=== PATIENT | female | born 1970 | race Two or more races ===

== ENCOUNTER 2017-10-18 09:21 | Day surgery (SDC) | payer BC ==
[2017-10-17 08:40] VITALS: BP 115/81
[~2017-10-18] VITALS: Ht 165.1 cm; Wt 90.6 kg
[~2017-10-18 09:21] MED LIST: ASCO500T8 PO; LEVO100T PO
[2017-10-18] MEDS ORDERED: LACTATED RINGERS 1,000 ML IV SCH (09:44)
[2017-10-18 09:46] VITALS: BP 115/81
[2017-10-18 09:52] LABS: HCG UR SG 1.029 (1.003-1.030)
[2017-10-18] MEDS ORDERED: PLEASE ENTER ALLERGIES MC SCH (10:00)
[2017-10-18] MEDS ORDERED: LIDOCAINE 1%, 2ML SQ PRN (10:00)
[2017-10-18] MEDS ORDERED: LIDOCAINE-MPF 2% ,5ML ONE (10:32)
[2017-10-18] MEDS ORDERED: PROPOFOL 10 MG/ML, 20ML ONE (10:32)
[2017-10-18] MEDS ORDERED: ROCURONIUM 10 MG/ML,10ML ONE (10:33)
[2017-10-18] MEDS ORDERED: MIDAZOLAM 1 MG/ML, 2ML ONE (10:34)
[2017-10-18] MEDS ORDERED: ONDANSETRON 2MG/ML, 2ML ONE ×2 (11:41→13:18)
[2017-10-18] MEDS ORDERED: DEXAMETHASONE 4 MG/ML, 1ML ONE ×2 (11:41)
[2017-10-18] MEDS ORDERED: INDOMETHACIN 50 MG SUPP.RECT ONE (12:09)
[2017-10-18] MEDS ORDERED: FENTANYL PF 100 MCG/2ML ONE (12:21)
[2017-10-18] MEDS ORDERED: OMNIPAQUE 350 MG/ML, 50 ML BOTTLE ONE (12:37)
[2017-10-18] MEDS ORDERED: MEPERIDINE/PF 25MG/0.5ML IVPush PRN (13:00)
[2017-10-18] MEDS ORDERED: ONDANSETRON 2MG/ML, 2ML IVPush PRN (13:00)
[2017-10-18] MEDS ORDERED: FENTANYL PF 100 MCG/2ML IV PRN (13:00)
== END 2017-10-18 15:10 ==
LOC: OUT 09:21
PROVIDERS: ATTEND Internal Medicine Geriatric Medicine
DX: K86.89 Other specified diseases of pancreas (principal); Z88.8 Allergy status to other drugs, medicaments and biological substances
CPT/HCPCS: 43276; 74329; 81025; C1769; C1894; C2625; J1100; J2250; J2405; J2704; J3010; J3490; J7120; Q9967

== ENCOUNTER 2017-11-02 06:51 | Day surgery (SDC) | payer BC ==
[~2017-11-02] VITALS: Ht 165.1 cm; Wt 87.0 kg
[2017-11-02] MEDS ORDERED: LIDOCAINE 1%, 2ML ONE (07:43)
[2017-11-02 07:52] LABS: HCG UR SG 1.024 (1.003-1.030)
[2017-11-02] MEDS ORDERED: LACTATED RINGERS 1,000 ML IV SCH (08:01)
[2017-11-02] MEDS ORDERED: ACET-1600 PO (08:04)
[2017-11-02 08:07] VITALS: BP 121/84
[2017-11-02] MEDS ORDERED: FENTANYL PF 100 MCG/2ML ONE (08:14)
[2017-11-02] MEDS ORDERED: MIDAZOLAM 1 MG/ML, 2ML ONE (08:14)
[2017-11-02] MEDS ORDERED: LIDOCAINE 1%, 2ML SQ PRN (08:30)
[2017-11-02] MEDS ORDERED: PROPOFOL 10 MG/ML, 50ML ONE (08:55)
== END 2017-11-02 10:50 | disposition home or self-care (01) ==
LOC: OUT 06:51
PROVIDERS: ATTEND Internal Medicine
DX: K86.89 Other specified diseases of pancreas (principal)
CPT/HCPCS: 43275; 81025; J2250; J2704; J3010; J3490; J7120

== ENCOUNTER 2017-12-14 08:09 | Day surgery (SDC) | payer BC, OTHER ==
[~2017-12-14] VITALS: Ht 165.1 cm; Wt 88.1 kg
[~2017-12-14 08:09] MED LIST changes: +ACET-1600 PO
[2017-12-14] MEDS ORDERED: LACTATED RINGERS 1,000 ML IV SCH (08:33)
[2017-12-14 08:38] VITALS: BP 107/77
[2017-12-14] MEDS ORDERED: LIDOCAINE-MPF 1%, 2ML ONE (08:48)
[2017-12-14 08:49] LABS: HCG UR SG 1.025 (1.003-1.030)
[2017-12-14] MEDS ORDERED: LIDOCAINE 1%, 2ML SQ PRN (09:00)
[2017-12-14] MEDS ORDERED: NEOSPORIN OINT. PKT 1 PACKET ONE (09:30)
[2017-12-14] MEDS ORDERED: BACITRACIN 50,000 UNIT ONE (09:30)
[2017-12-14] MEDS ORDERED: BUPIVACAINE/PF 0.5% ONE (09:39)
[2017-12-14] MEDS ORDERED: EPINEPHRINE 1 MG/ML, 1ML ONE (09:39)
[2017-12-14] MEDS ORDERED: MEPERIDINE/PF 25MG/0.5ML IVPush PRN (10:00)
[2017-12-14] MEDS ORDERED: ONDANSETRON 2MG/ML, 2ML IVPush PRN (10:00)
[2017-12-14] MEDS ORDERED: ACETAMINOPHEN 325 MG TABLET PO PRN (10:00)
[2017-12-14] MEDS ORDERED: PROPOFOL 10 MG/ML, 20ML ONE (10:03)
[2017-12-14] MEDS ORDERED: CEFAZOLIN 1,000 MG ONE ×2 (10:04)
[2017-12-14] MEDS ORDERED: LIDOCAINE-MPF 2% ,5ML ONE (10:04)
[2017-12-14] MEDS ORDERED: ONDANSETRON 2MG/ML, 2ML ONE (10:06)
[2017-12-14] MEDS ORDERED: DEXAMETHASONE 4 MG/ML, 1ML ONE ×2 (10:07)
[2017-12-14] MEDS ORDERED: FENTANYL PF 100 MCG/2ML ONE ×2 (10:08→10:31)
[2017-12-14] MEDS: FENTANYL PF 100 MCG/2ML IV PRN ×3 (10:32→10:42)
[2017-12-14] MEDS ORDERED: ACETAMINOPHEN 650 MG/20.3 ML UDC ONE (10:40)
[2017-12-14] MEDS ORDERED: OXYcodone 5 MG/5 ML ORAL.SOL UDC ONE (10:40)
[2017-12-14] MEDS: morphine SULFATE 10 MG/ML, 1ML IV PRN ×2 (10:50→11:20)
[2017-12-14] MEDS ORDERED: morphine SULFATE 10 MG/ML, 1ML ONE (10:57)
[2017-12-14] MEDS ORDERED: OXYcodone 5 MG/5 ML ORAL.SOL UDC PO PRN (11:00)
== END 2017-12-14 15:35 ==
LOC: OUT 08:09
PROVIDERS: ATTEND Surgery
DX: T81.4XXD Infection following a procedure, subsequent encounter (principal); X58.XXXD Exposure to other specified factors, subsequent encounter; E03.9 Hypothyroidism, unspecified; Z98.890 Other specified postprocedural states; Z90.49 Acquired absence of other specified parts of digestive tract; Z72.89 Other problems related to lifestyle; Z88.5 Allergy status to narcotic agent
CPT/HCPCS: 10180; 81025; J0171; J0690; J1100; J2270; J2405; J2704; J3010; J3490; J7120